=== PATIENT | female | born 1970 | race Caucasian/White ===

== ENCOUNTER → 2017-02-20 | Outpatient (CLI) | payer OTHER ==
[~2017-02-20] VITALS: Ht 162.6 cm; Wt 67.1 kg
[~2017-02-20] MED LIST: CALCIUM500 M4 PO; DIALYVITE 800-1 EAC2 PO; ENSKYCE1 EACH PO; ESSENTIAL WOMA1 EAC1 PO; FLAGYL500 MG PO; NON-ASPIRIN PA500 M1 PO; VIT C-ROSE HIP500 MG PO
== END | disposition home or self-care (01) ==
LOC: AMB 12:43
PROC: 0DJD8ZZ Inspection of Lower Intestinal Tract, Via Natural or Artificial Opening Endoscopic (ICD-10-PCS; principal; 2017-02-20)
DX: K64.8 Other hemorrhoids (principal); K57.30 Diverticulosis of large intestine without perforation or abscess without bleeding; R10.30 Lower abdominal pain, unspecified; Z87.19 Personal history of other diseases of the digestive system; Z88.0 Allergy status to penicillin; Z88.5 Allergy status to narcotic agent
CPT/HCPCS: J2250